=== PATIENT | male | born 1940 | race Caucasian/White ===

== ENCOUNTER → 2018-07-14 14:55 | Outpatient (CLI) | payer OTHER, MEDICARE, SELFPAY ==
--- NOTE | 2018-07-14 14:58 | MR_ITS ---
MR lumbar spine wo con, MR 3-d myelogram/MRCP HISTORY: PT states low back pain, RT buttock and leg pain, numbness and tingling X2 months. ITS.REASON: LOW BACK PAIN ORDERING PHYSICIAN: Marisela Daniel PATIENT AGE: 78 years Comparison: CT lumbar 05/30/18 TECHNIQUE: Standard multiplanar multiecho sequences are performed without contrast. 3-D MIP and myelographic images are also rendered and reviewed FINDINGS: There is normal alignment. The spinal cord ends at the L1-L2 level. L1-L2: Mild degenerative disc disease with mild facet and ligamentum flavum hypertrophy with mild bilateral foraminal narrowing. L2-L3: Mild concentric bulging disc along with facet and ligamentum flavum hypertrophy with mild bilateral lateral recess and foraminal narrowing. L3-L4: Mild concentric bulging disc along with moderate facet and ligamentum flavum hypertrophic change. There is moderate bilateral foraminal narrowing as well as moderate bilateral lateral recess narrowing. There is mild narrowing of the canal due to the ligamentum hypertrophic changes L4-5: There is a mild concentric bulging disc along with a moderate-sized right paracentral disc herniation with superior extrusion which results in impingement upon the exiting right L4 nerve root and the descending right L5 nerve root. There is severe right-sided foraminal narrowing. The herniated disc also appears to involve the foraminal aspect of the disc with severe compression of the right L4 nerve root. Facet and ligamentum flavum hypertrophy is also present at this level with bilateral lateral recess and foraminal narrowing left. L5-S1: Again there is degenerative disc disease with bulging disc and type II endplate changes anteriorly. Facet and ligamentum flavum hypertrophy is present with moderate right and moderate to severe left foraminal narrowing. IMPRESSION: 1. Concentric bulging disc at L4-L5 along with a moderate-sized right paracentral and foraminal disc herniation. There is superior extrusion of the right paracentral aspect of the disc herniation. There is impingement upon the exiting right L4 nerve root and the descending right L5 nerve root. There is severe right-sided foraminal narrowing. The herniated disc also appears to involve the foraminal aspect of the disc with severe compression of the right L4 nerve root. 2. Multilevel lumbar spondylosis with bulging disc, degenerative disc disease and facet and ligamentum hypertrophy with foraminal and lateral recess narrowing. Please see above for detailed description at each level
== END ==
PROVIDERS: PCP Nurse Practitioner Family; Visit Provider Nurse Practitioner Family
DX: M51.36 Other intervertebral disc degeneration, lumbar region (principal)
CPT/HCPCS: 72148; 76376

== ENCOUNTER 2018-12-11 08:57 | Observation (INO) ==
[2018-12-11 09:22] LABS: Basophils # 0.1 K/mm3 (0-0.2); Basophils % 0.7 % (0.1-2.0); Eosinophils # 0.4 K/mm3 (0.0-0.4); Eosinophils % 2.7 % (0.1-12.0); Hematocrit 44.8 % (42.0-52.0); Hemoglobin 15.9 g/dL (14.1-18.0); Lymphocytes # 7.4 K/mm3 (0.7-4.5); Lymphocytes % 52.4 % (10-50); Mean Corpuscular HGB Conc 35.4 g/dL (31.8-35.4); Mean Corpuscular Hemoglobin 29.4 pg (27.0-31.2); Mean Corpuscular Volume 82.9 fl (80-94); Mean Platelet Volume 7.2 fl (7.4-10.4); Monocytes # 0.8 K/mm3 (0.1-1.0); Monocytes % 5.4 % (1.7-9.3); Neutrophils # 5.5 K/mm3 (1.8-7.8); Neutrophils % 38.8 % (37.0-80.0); Platelet Count 314 K/mm3 (142-424); Red Blood Count 5.41 M/mm3 (4.60-6.20); Red Cell Distribution Width 13.1 % (11.5-17.5); White Blood Count 14.1 K/mm3 (4.8-10.8)
[2018-12-11 09:32] LABS: Blood Urea Nitrogen 9 mg/dL (7-18); Calcium 9.2 mg/dL (8.5-10.1); Carbon Dioxide 24 mmol/L (21.0-32.0); Chloride 103 mmol/L (98-107); Sodium 139 mmol/L (136-145)
[2018-12-11 09:41] LABS: Glucose 114 mg/dL (74-106)
--- NOTE | 2018-12-11 10:13 | Consult Report ---
<TaiwoDarwin - Last Filed: 12/11/18 10:55> [facility] History I have reviewed the patient's past medical history: Yes Meds Home Medications Medication Instructions Recorded Confirmed Type Loratadine [Claritin] 10 mg PO DAILY 05/30/18 05/30/18 History Allergies Allergy/AdvReac Type Severity Reaction Status Date / Time codeine Allergy Verified 05/30/18 10:59 Exam Vital signs and Labs for Last 24 Hours: Temp Pulse Resp BP Pulse Ox 96.9 F L 58 L 15 136/65 97 12/11/18 08:57 12/11/18 10:27 12/11/18 09:52 12/11/18 10:27 12/11/18 10:27 Laboratory Results - last 24 hr 12/11/18 09:05: WBC 14.1 H, RBC 5.41, Hgb 15.9, Hct 44.8, MCV 82.9, MCH 29.4, MCHC 35.4, RDW 13.1, Plt Count 314, MPV 7.2 L, Neut % (Auto) 38.8, Lymph % (Auto) 52.4 H, Hubbard % (Auto) 5.4, Eos % (Auto) 2.7, Baso % (Auto) 0.7, Neut # (Auto) 5.5, Lymph # (Auto) 7.4 H, Hubbard # (Auto) 0.8, Eos # (Auto) 0.4, Baso # (Auto) 0.1, Total Counted 100, Neutrophils % (Manual) 36 L, Band Neutrophils % 1.0, Lymphocytes % (Manual) 54 H, Monocytes % (Manual) 8, Eosinophils % (Manual) 1, Platelet Estimate Normal, RBC Morphology Normal 12/11/18 09:05: Sodium 139, Potassium 4.0, Chloride 103, Carbon Dioxide 24, Anion Gap 16.0 H, BUN 9, Creatinine 1.11, Estimated Creat Clear 64, Estimated GFR 64, Est GFR ( Amer) 77, Glucose 114 H, Calcium 9.2, Troponin I < 0.02 I & O for Last 24 hours: Intake & Output 12/08/18 12/09/18 12/10/18 12/11/18 11:59 11:59 11:59 11:59 Weight 184 lb Assessment and Plan (1) Near syncope Current visit: Yes Status: Acute Category: Medical Code(s): R55 - Syncope and collapse (2) Sick sinus syndrome Current visit: Yes Status: Acute Category: Medical Code(s): I49.5 - Sick sinus syndrome (3) Junctional escape rhythm Current visit: Yes Status: Acute Category: Medical Code(s): I49.49 - Other premature depolarization <Neeraj Mclain - Last Filed: 12/11/18 11:06> History of Present Illness Consult date: 12/11/18 Requesting physician: Darwin Maravilla Chief complaint: Near syncope Additional Medical History:: 1. History of myocardial infarction approximately 1999 with reported damage to "the lower half of the heart" but no available records at this time 2. 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 History of present illness: 78-year-old white male was in the emergency department with his , who is being seen, when he developed sudden lightheadedness, nausea, diaphoresis and dizziness with near syncope type symptoms. Patient's reports a similar episode 1 to 2 weeks ago without passing out. Patient was placed in a ER bay with an EKG obtained showing what appears to be sick sinus syndrome with sinus arrest and junctional escape beat. After IV fluids started patient's heart rate did improve into the 60s and 70s to a sinus rhythm. Patient still feels tired but denies any dizziness, chest pain, pressure or tightness. He denies tobacco use or history of diabetes. He denies hypertension or history of hyperlipidemia. No significant family history of coronary disease but there is a family history for pacemaker placement. Initial troponin is normal and cardiology consulted for evaluation and recommendations. No old EKG available for comparison. [facility] History Medical History: Denies:: Diabetes Mellitus Type 1, Diabetes Mellitus Type 2 - *Social History Alcohol Intake: never Family Hx:: Non-contributory Review of Systems - *Cardiovascular Denies chest pain, Denies shortness of breath - *Respiratory Denies cough, Denies shortness of breath - *Gastrointestinal Denies abdominal pain, Denies heartburn, Denies incontinent of stools, Denies nausea - *Genitourinary Denies painful urination, Denies blood in urine - *Musculoskeletal Reports joint pain, Reports back pain - *Neurologic Reports dizziness, Reports weakness Exam Vital signs and Labs for Last 24 Hours: Temp Pulse Resp BP Pulse Ox 96.9 F L 55 L 15 146/81 H 98 12/11/18 08:57 12/11/18 09:52 12/11/18 09:52 12/11/18 09:52 12/11/18 09:52 Laboratory Results - last 24 hr 12/11/18 09:05: WBC 14.1 H, RBC 5.41, Hgb 15.9, Hct 44.8, MCV 82.9, MCH 29.4, MCHC 35.4, RDW 13.1, Plt Count 314, MPV 7.2 L, Neut % (Auto) 38.8, Lymph % (Auto) 52.4 H, [place] % (Auto) 5.4, Eos % (Auto) 2.7, Baso % (Auto) 0.7, Neut # (Auto) 5.5, Lymph # (Auto) 7.4 H, Hubbard # (Auto) 0.8, Eos # (Auto) 0.4, Baso # (Auto) 0.1 12/11/18 09:05: Sodium 139, Potassium 4.0, Chloride 103, Carbon Dioxide 24, Anion Gap 16.0 H, BUN 9, Creatinine 1.11, Estimated Creat Clear 64, Estimated GFR 64, Est GFR ( Amer) 77, Glucose 114 H, Calcium 9.2, Troponin I < 0.02 I & O for Last 24 hours: Intake & Output 12/08/18 12/09/18 12/10/18 12/11/18 11:59 11:59 11:59 11:59 Weight 184 lb - *Routine HEENT Exam Head: Present: normocephalic Eye: Present: EOMI, PERRL ENT: Present: mucous membranes moist - *Routine Neck Exam Present: supple. Absent: JVD, carotid bruit - *Routine Respiratory Exam Present: CTA bilaterally. Absent: accessory muscle use, rales, rhonchi, wheezes - *Routine Cardiovascular Exam Present: RRR. Absent: murmur, gallop, rubs - *Routine Abdominal Exam Present: soft. Absent: tenderness, distended, guarding - *Routine Extremities Exam Absent: edema, calf tenderness - *Routine Neurological Exam Present: alert, oriented X3, moving all extremities Assessment and Plan (1) Near syncope Current visit: Yes Status: Acute Category: Medical Code(s): R55 - Syncope and collapse (2) Sick sinus syndrome Current visit: Yes Status: Acute Category: Medical Code(s): I49.5 - Sick sinus syndrome (3) Junctional escape rhythm Current visit: Yes Status: Acute Category: Medical Code(s): I49.49 - Other premature depolarization - Assessment and plan all Dx Assessment and Plan for all problems:: 1. Preliminary echo shows EF about 50%. 2. Plan for dual chamber pacemaker placement today. 3. Will need ischemic workup as outpatient due to history of KS. 4. Recommend starting statin (lipitor 40 mg daily) and ASA 81 mg daily after pacer implant.
[2018-12-11 10:18] LABS: Eosinophils % 1 % (0-3); Lymphocytes % 54 % (10-50); Monocytes % 8 % (2-9); Neutrophils % 36 % (42-76); RBC Morphology Normal; Total Cells Counted 100
--- NOTE | 2018-12-11 11:03 | Emergency Department Note ---
ED Disposition Clinical Impression: Cardiac arrhythmia Qualifiers: Arrhythmia type: sick sinus syndrome Qualified Code(s): I49.5 - Sick sinus syndrome Disposition: Admitted As Inpatient Condition on Discharge: Serious Referrals: Darwin Maravilla MD [Primary Care Provider] - - Critical Care Critical Care Time: No Attestation: On 12/11/18, the high probability of a clinically significant, sudden or life threatening deterioration of the following system(s) required my full and direct attention, intervention and personal management. The time I documented below is in addition to time spent performing reported procedures but includes the following listed in this critical care notation. Medical Decision Making - Medical Records Medical records reviewed: Yes: I reviewed the patient's medical records. - Ned Inquiry Pt receiving controlled substance: No Vital Signs: 12/11/18 08:57 12/11/18 09:00 12/11/18 09:06 Temperature 96.9 F L Temperature Source Temporal Artery Scan Pulse Rate [Apical] 41 L 56 L 58 L Respiratory Rate 12 18 Blood Pressure [Right Arm] 108/73 L 132/72 132/72 Blood Pressure Mean [Right Arm] 84 92 92 Blood Pressure Source [Right Arm] Automatic Cuff Automatic Cuff Blood Pressure Position [Right Arm] Sitting Sitting 02 Sat by Pulse Oximetry 98 98 98 Oxygen Delivery Method Room Air Room Air Room Air Oxygen Flow Rate (LPM) 12/11/18 09:09 12/11/18 09:10 12/11/18 09:33 Temperature Temperature Source Pulse Rate [Apical] 58 L 58 L Respiratory Rate 16 Blood Pressure [Right Arm] 132/75 132/74 Blood Pressure Mean [Right Arm] 94 93 Blood Pressure Source [Right Arm] Automatic Cuff Automatic Cuff Blood Pressure Position [Right Arm] Sitting Supine 02 Sat by Pulse Oximetry 98 97 98 Oxygen Delivery Method Room Air Nasal Cannula Nasal Cannula Oxygen Flow Rate (LPM) 2 2 12/11/18 09:52 12/11/18 10:17 12/11/18 10:27 Temperature Temperature Source Pulse Rate [Apical] 55 L 56 L 58 L Respiratory Rate 15 Blood Pressure [Right Arm] 146/81 H 139/75 136/65 Blood Pressure Mean [Right Arm] 102 96 88 Blood Pressure Source [Right Arm] Automatic Cuff Automatic Cuff Automatic Cuff Blood Pressure Position [Right Arm] Supine Supine 02 Sat by Pulse Oximetry 98 98 97 Oxygen Delivery Method Nasal Cannula Nasal Cannula Nasal Cannula Oxygen Flow Rate (LPM) 2 2 2 12/11/18 10:54 Temperature Temperature Source Pulse Rate [Apical] 60 Respiratory Rate 18 Blood Pressure [Right Arm] 133/75 Blood Pressure Mean [Right Arm] 94 Blood Pressure Source [Right Arm] Automatic Cuff Blood Pressure Position [Right Arm] Supine 02 Sat by Pulse Oximetry 97 Oxygen Delivery Method Oxygen Flow Rate (LPM) - Lab Data Lab results reviewed: Yes: I reviewed the patient's lab results. Lab Results 12/11/18 09:05: WBC 14.1 H, RBC 5.41, Hgb 15.9, Hct 44.8, MCV 82.9, MCH 29.4, MCHC 35.4, RDW 13.1, Plt Count 314, MPV 7.2 L, Neut % (Auto) 38.8, Lymph % (Auto) 52.4 H, [place] % (Auto) 5.4, Eos % (Auto) 2.7, Baso % (Auto) 0.7, Neut # (Auto) 5.5, Lymph # (Auto) 7.4 H, [place] # (Auto) 0.8, Eos # (Auto) 0.4, Baso # (Auto) 0.1, Total Counted 100, Neutrophils % (Manual) 36 L, Band Neutrophils % 1.0, Lymphocytes % (Manual) 54 H, Monocytes % (Manual) 8, Eosinophils % (Manual) 1, Platelet Estimate Normal, RBC Morphology Normal 12/11/18 09:05: Sodium 139, Potassium 4.0, Chloride 103, Carbon Dioxide 24, Anion Gap 16.0 H, BUN 9, Creatinine 1.11, Estimated Creat Clear 64, Estimated GFR 64, Est GFR ( Amer) 77, Glucose 114 H, Calcium 9.2, Troponin I < 0.02 Result diagrams: 12/11/18 09:05 12/11/18 09:05 Orders (Tests/Meds): ED MEDICATIONS Discontinued Medications Generic Name Dose Route Start Last Admin Trade Name Freq PRN Reason Stop Dose Admin Sodium Chloride 1,000 mls @ 999 mls/hr 12/11/18 09:15 12/11/18 09:11 Sod Chlor 0.9% 1000ml Bag IV 12/11/18 10:15 999 mls/hr .[id number] KATHY Administration - Radiology Data #1 Image(s): Chest Image Reviewed: Yes I reviewed the patient's radiology image Preliminary Findings: Normal/NAD - ECG Data Tracing #1 Conduction abnormalities present: 3rd degree AV block Tracing #2 Arrhythmias present: sinus tory Ischemic changes: non-specific ST-T wave changes - Physician Consults Physician Consulted: [email or web address] Reason -: Pt condition Arrhythmia/Palpitations HPI - General Chief Complaint: Dizziness Stated Complaint: dizziness, clammy Time Seen by Provider: 12/11/18 09:00 Mode of Arrival: Carried Source of Information: Patient, Spouse, Medical Record Limitations: No Limitations - History of Present Illness HPI narrative: pt sitting with and had staring episode and did not feel well with nausea and calmmy - pt was noted to have slow hr and found to be in possible 3rd degree hreat block - Onset (ago): minute(s) Severity: severe Context: occurred during rest Associated symptoms: nausea, diaphoresis - Related Data Home Medications Medication Instructions Recorded Confirmed Loratadine [Claritin] 10 mg PO DAILY 05/30/18 05/30/18 Allergies Allergy/AdvReac Type Severity Reaction Status Date / Time codeine Allergy Verified 05/30/18 10:59 [facility] History - Hepatitis A Screen Drug use history?: No High risk sexual behaviors?: No History of sexually transmitted infection?: No Currently employed?: No Childcare worker?: No Do you have indoor plumbing?: Yes Do you have electricity?: Yes Attestation statement:: This patient has been screened for Hepatitis A risk factors. I have reviewed the patient's past medical history: Yes Medical History: Denies:: Diabetes Mellitus Type 1, Diabetes Mellitus Type 2 - Social History Alcohol Intake: never Occupational Status: other - Psychiatric History Expresses thoughts of harming self/others: None Suicide Plan Description: No Plan ROS Obtained: Yes All systems reviewed & no additional complaints - Constitutional Constitutional: Denies fever(s) - Eyes Eyes: Denies change in vision - ENT Ears, Nose, Mouth, and Throat: Denies neck pain - Cardiovascular Cardiovascular: Denies chest pain, Reports lightheadedness, Reports slow heart rate - Respiratory Respiratory: No cough - Gastrointestinal Gastrointestingal: Denies: abdominal pain - Genitourinary Male Genitourinary: Denies hematuria - Musculoskeletal Musculoskeletal: Denies joint pain - Integumentary/Breasts Skin/Breast: Denies rash - Neurologic Neurologic: Denies seizure-like activity Physical Exam - General General appearance: alert - Head Head exam: normocephalic - Eye Eye exam: Present: PERRL, EOMI. Absent: scleral icterus - ENT ENT exam: Present: mucous membranes dry - Neck Neck exam: Present: trachea midline - Respiratory Respiratory exam: Present: normal lung sounds bilaterally. Absent: respiratory distress - Cardiovascular Cardiovascular exam: Present: bradycardia, systolic murmur - Abdominal Exam Abdominal exam: Present: soft - Extremities Exam Extremities exam: Absent: calf tenderness - Neurological Exam Neurological exam: Present: alert, CN II-XII intact - Psychiatric Psychiatric exam: Present: normal affect - Skin Skin exam: Absent: rash
--- NOTE | 2018-12-11 11:06 | Cardiology Report ---
PROCEDURE: 2-D M-mode and color Doppler study INDICATIONS FOR THE TEST: Chest pain COPD Heart Murmur Tobacco Smoking Palpitations Fatigue Syncope+ Edema Hypertension Diabetes Mellitus Rheumatic Fever SOB HURST Obesity Hyperlipidemia Family History HD Additional History bradycardia, sick sinus syndrome TDS-OVERLAYING LUNG,OFF-AXIS PATIENT INFORMATION HEIGHT: 70 WEIGHT:184 GENDER: Male B/P:145/81 2-D/M-MODE INTERPRETATION: 2-D MEASUREMENTS OBSERVED VALUES IN CMS Right Ventricular Dimension (RVDd) 2.3 Interventricular Septum (Thickness)(IVsd) 0.9 Left Ventricular Internal Dimensions(LVIDd) 4.1 Left Ventricular Posterior Wall (Thickness)(LVPWd) 1.1 Aortic Root 2.6 Aortic Cusp Separation 1.8 Left Atrial Dimensions (LAD) 2.9 2D 1. Left atrium is normal size, left ventricle is normal size, visually estimated ejection fraction 55% with no regional wall motion abnormality. 2. The right atrium and right ventricle are normal size and contractility. 3. The aortic valve is minimally thickened and fibrosed. 4. The mitral and tricuspid valve are grossly normal. 5. The pulmonic valve is poorly visualized. 6. No significant pericardial effusion noted. DOPPLER INTERROGATION: Doppler interrogation of the aortic, mitral and tricuspid valvular presence of mild mitral and tricuspid regurgitation, tricuspid regurgitation jet velocity is inadequate for calculation of the right ventricular systolic pressure, diastolic parameters are inconclusive, inferior vena cava is normal size with normal inspiratory collapse. CONCLUSION: 1. Normal left ventricular size, visually estimated ejection fraction 55% with no regional wall motion abnormality, diastolic parameters are inconclusive. 2. Mild mitral and tricuspid regurgitation, tricuspid regurgitant jet velocity is inadequate for calculation of the right ventricular systolic pressure, inferior vena cava is normal size with normal inspiratory collapse.
--- NOTE | 2018-12-11 14:23 | Progress Note ---
[facility] Anesthesia Checklist - Patient Identification Patient Identification: Arm Band, Verbal (Name & ) - Structural Data Admitted From: Home Planned Operative Procedure/s: pacemaker Consent for Planned Operative Procedure(s) Verified: Yes Verified Documents: History and Physical - NPO Status Verified Time NPO: 00:00 - Additional verifications Patient : No Anesthesia Reactions: No Hx Blood Transfusions: No Blood Transfusion Reaction: No Cephalosporin Allergy: No Previous Colonoscopy: No - Cardiovascular Assessment Heart Sounds: S1 & S2 Pulse Strength: Baseline Pulse Rhythm: Regular Peripheral Edema: No - Airway Assessment C-Spine Mobility Assessed: Yes TMJ Mobility Assessed: Yes Dentition: Good Dentition - Neurological Assessment Level of Consciousness: Awake, Alert, Appropriate Hx Seizures: No Numbness or tingling in extremities: No - Anesthesia Plan Anesthesia Risk discussed: Yes Anesthesia Plan: Verified ASA Class: III Anesthesia Type: [facility] History I have reviewed the patient's past medical history: Yes Medical History: Denies:: Diabetes Mellitus Type 1, Diabetes Mellitus Type 2, Seizures Other Medical History: Denies: Blood Transfusion Reaction - *Social History Alcohol Intake: never *Occupational Status:: other *Travel in the last 8 weeks: None - Psychiatric History Expresses thoughts of harming self/others: None Suicide Plan Description: No Plan Family Hx:: Non-contributory
--- NOTE | 2018-12-11 15:08 | Pharmacy Consult Notes ---
[facility] Pharmacy VTE Monitoring - Patient Demographics Admission date: 12/11/18 Report Date: 12/11/18 Time: 15:08 Allergies/Adverse Reactions: Patient Allergies codeine Allergy (Verified 05/30/18 10:59) Height: 1.78 m Weight: 83.461 kg Patient Problems: Current Active Problems (Updated 12/11/18 @ 11:06 by Darwin Maravilla MD) Near syncope (Acute) Sick sinus syndrome (Acute) Junctional escape rhythm (Acute) Cardiac arrhythmia (Acute) - VTE Risk Labs: VTE Related Lab Results Hgb 15.9 g/dL (14.1-18.0) 12/11/18 09:05 Hct 44.8 % (42.0-52.0) 12/11/18 09:05 Plt Count 314 K/mm3 (142-424) 12/11/18 09:05 BUN 9 mg/dL (7-18) 12/11/18 09:05 Creatinine 1.11 mg/dL (0.70-1.30) 12/11/18 09:05 Estimated Creat Clear 64 mL/min (50-200) 12/11/18 09:05 - Prophylaxis VTE Prophylaxis Ordered?: Yes Types of VTE Prophylaxis: TEDS Knee High Location of Applied Device: Bilateral Lower Extremeties - VTE Diagnosis Confirmed Treatment or plan recommended: Continue Current Treatment
--- NOTE | 2018-12-11 16:33 | Progress Note ---
[facility] Anesthesia Record Part I Intake, IV Amount: 800 Estimated blood loss (mL): 20 Urine output (mL): 0 (NM) Blood Products used (#): none Blood Pressure: 137/72 SaO2: 96 Pulse Rate: 65 Respiratory Rate: 16 Temperature: 97.1 F Patient is:: Awake, Drowsy, Stable Stable to PACU at:: 16:30
--- NOTE | 2018-12-11 16:33 | Progress Note ---
[facility] Anesthesia Record Part II Discharge Time: 17:00 Destination: Medical Surgical Department PACU nurse assessment reviewed?: Yes Patient Condition:: Good Anesthesia Complications:: None Swallowing reflex intact?: Yes Cyanosis?: No
[2018-12-12 07:25] LABS: Basophils # 0.1 K/mm3 (0-0.2); Basophils % 0.5 % (0.1-2.0); Eosinophils # 0.2 K/mm3 (0.0-0.4); Eosinophils % 1.9 % (0.1-12.0); Hematocrit 42.1 % (42.0-52.0); Hemoglobin 14.4 g/dL (14.1-18.0); Lymphocytes # 4.3 K/mm3 (0.7-4.5); Lymphocytes % 39.5 % (10-50); Mean Corpuscular HGB Conc 34.1 g/dL (31.8-35.4); Mean Corpuscular Hemoglobin 28.6 pg (27.0-31.2); Mean Corpuscular Volume 83.6 fl (80-94); Mean Platelet Volume 7.1 fl (7.4-10.4); Monocytes # 0.7 K/mm3 (0.1-1.0); Monocytes % 6.4 % (1.7-9.3); Neutrophils # 5.6 K/mm3 (1.8-7.8); Neutrophils % 51.8 % (37.0-80.0); Platelet Count 229 K/mm3 (142-424); Red Blood Count 5.03 M/mm3 (4.60-6.20); Red Cell Distribution Width 13.2 % (11.5-17.5); White Blood Count 10.8 K/mm3 (4.8-10.8)
[2018-12-12 07:36] LABS: Anion Gap 13.7 mEq/L (5-15); Calcium 8.7 mg/dL (8.5-10.1); Potassium 3.7 mmoL/L (3.5-5.1)
--- NOTE | 2018-12-12 10:13 | H&P/Discharge Summary ---
General - General Admission date:: 12/11/18 Discharge date: 12/12/18 *Admission Date: 12/11/18 *Chief complaint: syncope *History of present illness: 78-year-old white male was in the emergency department with his , who is being seen, when he developed sudden lightheadedness, nausea, diaphoresis and dizziness with near syncope type symptoms. Patient's reports a similar episode 1 to 2 weeks ago without passing out. Patient was placed in a ER bay with an EKG obtained showing what appears to be sick sinus syndrome with sinus arrest and junctional escape beat. After IV fluids started patient's heart rate did improve into the 60s and 70s to a sinus rhythm. Patient still feels tired but denies any dizziness, chest pain, pressure or tightness. He denies tobacco use or history of diabetes. He denies hypertension or history of hyperlipidemia. No significant family history of coronary disease but there is a family history for pacemaker placement. Initial troponin is normal and cardiology consulted for evaluation and recommendations. No old EKG available for comparison.-per elisabeth dyson [facility] History I have reviewed the patient's past medical history: Yes Medical History: Reports:: Myocardial Infarction Denies:: Diabetes Mellitus Type 1, Diabetes Mellitus Type 2, Seizures *Have you ever received a pneumonia vaccine?: No *Have you received a flu vaccine this season?: No Other Medical History: Denies: Blood Transfusion Reaction Other Surgeries: Yes: Cholecystectomy, Hernia Repair, Other - *Social History Alcohol Intake: never *Occupational Status:: other *Travel in the last 8 weeks: None - Psychiatric History Expresses thoughts of harming self/others: None Suicide Plan Description: No Plan Family Hx:: Non-contributory Review of Systems - Review of Systems Review of systems:: pertinent systems reviewed and negative unless documented below - Constitutional Denies fever(s) - Eyes Denies change in vision - ENT Denies change in voice - *Cardiovascular Reports slow heart rate, Reports other, Denies chest pain with activity - *Respiratory Denies chest congestion - *Gastrointestinal Denies bloating, Denies vomiting - *Genitourinary Denies urinary frequency - *Musculoskeletal Denies back pain - Integumentary/Breasts Denies rash - *Neurologic Reports dizziness, Reports weakness, Denies seizure-like activity - Psychiatric Denies anxiety - Endocrine Denies flushing - Hematologic/Lymphatic Denies enlarged lymph nodes - Allergic/Immunologic Denies itchy eyes Exam Vital signs and Labs for Last 24 Hours: Temp Pulse Resp BP Pulse Ox 98.8 F 60 16 129/67 96 12/12/18 08:00 12/12/18 09:59 12/12/18 09:59 12/12/18 09:59 12/12/18 09:59 Laboratory Results - last 24 hr 12/11/18 09:05: Total Counted 100, Neutrophils % (Manual) 36 L, Band Neutrophils % 1.0, Lymphocytes % (Manual) 54 H, Monocytes % (Manual) 8, Eosinophils % (Manual) 1, Platelet Estimate Normal, RBC Morphology Normal 12/11/18 17:00: Troponin I 0.08 H 12/11/18 19:56: Troponin I 0.20 H 12/12/18 06:45: WBC 10.8, RBC 5.03, Hgb 14.4, Hct 42.1, MCV 83.6, MCH 28.6, MCHC 34.1, RDW 13.2, Plt Count 229 D, MPV 7.1 L, Neut % (Auto) 51.8, Lymph % (Auto) 39.5, [place] % (Auto) 6.4, Eos % (Auto) 1.9, Baso % (Auto) 0.5, Neut # (Auto) 5.6, Lymph # (Auto) 4.3, [place] # (Auto) 0.7, Eos # (Auto) 0.2, Baso # (Auto) 0.1 12/12/18 06:45: Sodium 139, Potassium 3.7, Chloride 105, Carbon Dioxide 24, Anion Gap 13.7, BUN 7, Creatinine 0.91, Estimated Creat Clear 78, Estimated GFR 80, Est GFR ( Amer) 97 D, Glucose 112 H, Calcium 8.7, Magnesium 1.8 I & O for Last 24 hours: Intake & Output 12/09/18 12/10/18 12/11/18 12/12/18 11:59 11:59 11:59 11:59 Intake Total 3055 / 3055 Output Total 925 / 925 Balance 2130 / 2130 Weight 184 lb 202 lb 6 oz - Constitutional no acute distress - *Routine HEENT Exam Head: Present: normocephalic Eye: Present: EOMI, PERRL ENT: Present: mucous membranes moist - *Routine Neck Exam Present: supple. Absent: lymphadenopathy - *Routine Respiratory Exam Present: CTA bilaterally - *Routine Cardiovascular Exam Present: RRR Comments: pacemaker - *Routine Abdominal Exam Present: soft, normoactive bowel sounds. Absent: tenderness - *Routine Extremities Exam Absent: cyanosis, clubbing, edema - *Routine Skin Exam Present: warm. Absent: rash Comments: dressing to left upper chest c/d/i - *Routine Neurological Exam Present: alert, oriented X3 - Routine Psychiatric Exam Present: normal affect Hospital Course Hospital Course: echo:CONCLUSION: 1. Normal left ventricular size, visually estimated ejection fraction 55% with no regional wall motion abnormality, diastolic parameters are inconclusive. 2. Mild mitral and tricuspid regurgitation, tricuspid regurgitant jet velocity is inadequate for calculation of the right ventricular systolic pressure, inferior vena cava is normal size with normal inspiratory collapse chest x ray: FINDINGS: Bipolar pacemaker has been inserted by left subclavian approach. Leads are present with tips in region of right atrium and right ventricle. No evidence of pneumothorax. Lungs are clear bilaterally. IMPRESSION: Interval pacemaker insertion with good lead position and no acute finding as described above dc home follow up with zohaib next week call friday for appointment Results Labs on day of discharge: Labs from last 24 hours 12/12/18 12/12/18 12/11/18 06:45 06:45 19:56 WBC 10.8 RBC 5.03 Hgb 14.4 Hct 42.1 MCV 83.6 MCH 28.6 MCHC 34.1 RDW 13.2 Plt Count 229 D MPV 7.1 L Neut % (Auto) 51.8 Lymph % (Auto) 39.5 [place] % (Auto) 6.4 Eos % (Auto) 1.9 Baso % (Auto) 0.5 Neut # (Auto) 5.6 Lymph # (Auto) 4.3 [place] # (Auto) 0.7 Eos # (Auto) 0.2 Baso # (Auto) 0.1 Total Counted Neutrophils % (Manual) Band Neutrophils % Lymphocytes % (Manual) Monocytes % (Manual) Eosinophils % (Manual) Platelet Estimate RBC Morphology Sodium 139 Potassium 3.7 Chloride 105 Carbon Dioxide 24 Anion Gap 13.7 BUN 7 Creatinine 0.91 Estimated Creat Clear 78 Estimated GFR 80 Est GFR ( Amer) 97 D Glucose 112 H Calcium 8.7 Magnesium 1.8 Troponin I 0.20 H 12/11/18 12/11/18 17:00 09:05 WBC RBC Hgb Hct MCV MCH MCHC RDW Plt Count MPV Neut % (Auto) Lymph % (Auto) [place] % (Auto) Eos % (Auto) Baso % (Auto) Neut # (Auto) Lymph # (Auto) [place] # (Auto) Eos # (Auto) Baso # (Auto) Total Counted 100 Neutrophils % (Manual) 36 L Band Neutrophils % 1.0 Lymphocytes % (Manual) 54 H Monocytes % (Manual) 8 Eosinophils % (Manual) 1 Platelet Estimate Normal RBC Morphology Normal Sodium Potassium Chloride Carbon Dioxide Anion Gap BUN Creatinine Estimated Creat Clear Estimated GFR Est GFR ( Amer) Glucose Calcium Magnesium Troponin I 0.08 H - Additional Comments discussed with dr Kelli pandey to dc home on bisoprol 5 mg po daily,asa and liptor Discussed with andi luciano round later all orders per andi DS: Diagnosis - Discharge Diagnosis (1) Near syncope Status: Acute (2) Sick sinus syndrome Status: Acute (3) Junctional escape rhythm Status: Acute Discharge Medications - Medications for Discharge Home Medication List at Discharge: No Action Melatonin 1 mg PO HS Cetirizine HCl [Zyrtec] 10 mg PO DAILY Acetaminophen [Tylenol 325mg Tablet] 650 mg PO HS Disposition Disposition: Home, Self-Care
[2018-12-12 12:09] VITALS: BP 163/79
--- NOTE | 2018-12-17 08:44 | Procedure Note ---
[facility] Pacemaker - Pacemaker Placement Date of Procedure:: 12/11/18 Time of Procedure:: 16:00 Procedure Performed:: Pocket formation for permanent pacemaker placement Placement of atrial sensing pacing lead into the right atrial appendage Placement of ventricular sensing pacing lead into the right ventricular apex Permanent pacemaker placement Preoperative Diagnosis:: Symptomatic Bradycardia Complications:: None Estimated Blood Loss (ml):: 10 Technique:: 1% Lidocaine with epinephrine used to anesthetize the left anterior aspect of the chest.Scalpel was used to make the initial cutaneous incision while electrocautery was used to dissect down into the fascia. The fascia was lifted off the pectoralis muscle and digitally manipulated creating a pocket for the p acemaker. The patient was then placed in Trendelenburg position and the subclavian vein was accessed via the Selinger technique. A 7 Togolese sheath was placed under fluoroscopic guidance into the subclavian vein. Following this, an additional wire was placed into the sheath. Now, with two wires inside the 7 Togolese sheath, this sheath was removed, maintaining the two wires in the subclavian vein. The sheath and dilator was then placed over one of the wires while keeping the other wire in place within the subclavian vein. The dilator was removed from the sheath. Using fluoroscopic guidance, the ventricular lead was placed into the right ventricular apex, screwed and secured into place. Electronic interrogation proved acceptable thresholds and voltage within the lead. Using 3-0 silk, the ventricular lead was then secured into place. Lead was secured to the fascia using the 3-0 silk. Following this, the sheath was pealed away. An additional 7 Togolese fresh sheath and dilator was placed over the existing wire. Using fluoroscopic guidance, the atrial lead was then placed into the right atrial appendage and screwed and secured in place. Electrical interrogation demonstrated acceptable thresholds and voltage numbers. The atrial lead was then secured into place using 3-0 silk and then the lead was finally secured to the fascia. With both the atria and ventricular leads in pl juan [place]ose with acceptable thresholds and sensitivity, the atrial and ventricular leads were placed into the pacemaker generator. Pacemaker generator was then secured to the fascia using 3-0 silk. 1 gram of Ancef was used to flush the pocket. Following the pacemaker being secured to the fascia and in place, Monocryl was used to close the subcutaneous layers while miesha were used to close the cutaneous layer. A pressure dressing was placed and the patient was transferred to the postop holding area in stable condition for postoperative care. - Interrogation Narrative: Generator Model # L311 Serial # [id number] RA Model # 7741 Serial # [id number] P-wave 0.9 mV Impedance 600 Ohms Threshold AFIB RVA Model # 7742 Serial # [id number] R-wave 19.6 mV Impedance 900 Ohms Threshold .8V Pulse Width 0.5ms Pacing Parameters: Mode: DDDR Base/Max Track: 60/120 Impression:: Successful pocket formation for permanent pacemaker placement Successful placement of atrial and sensing pacing lead into the right atrial appendage Successful placement of ventricular sensing and pacing lead into the right ventricular apex Successful permanent pacemaker placement Plan: Postoperative wound care
== END 2018-12-12 12:55 | disposition home or self-care (01) ==
LOC: ER 08:57 → 2ND 08:57
PROVIDERS: ADMIT Emergency Medicine; ATTEND Emergency Medicine
CPT/HCPCS: 33208; 36415; 71010; 71045; 80048; 82962; 83735; 84484; 85007; 85025; 93005; 93306; 96365; 96374; 99285; C1785; C1898; G0378

== ENCOUNTER → 2018-12-28 06:34 | Outpatient (CLI) | payer MEDICARE, SELFPAY ==
--- NOTE | 2018-12-28 06:42 | NM_ITS ---
CARDIOLITE SPECT MYOCARDIAL PERFUSION LEXISCAN, REST AND STRESS: [facility] REVIEW QGS EF AND WALL MOTION EVALUATION: QPS - PERFUSION EVALUATION HISTORY: Abnormal EKG, Fatigue, Recent Pacemaker Placement DOSE: 10.86 mCi technetium 99m mibi intravenously at rest followed by 29.9 mCi technetium 99m mibi following the intravenous ministration of 0.4 mg of Lexiscan. Resting blood pressure is 178/98. Stress blood pressure 171/91. FINDINGS: Ejection fraction is calculated to be 64%. Stress stress images reveal decreased activity in the anterior wall accompanied by transient left ventricular dilatation. Rest images reveal diminished activity but improved from resting images. Gated images calculated ejection fraction of 64% with normal wall motion IMPRESSION: Transient left ventricular dilatation accompanied by anterior wall reversible ischemia. This is a high risk abnormal stress test
--- NOTE | 2018-12-28 07:05 | HMH.ITSHM ---
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 []ASA CETIRIZINE BISOPROLOL ATORVASTATIN MELATONIN
== END ==
PROVIDERS: Visit Provider Internal Medicine Cardiovascular Disease
DX: I25.2 Old myocardial infarction (principal); I49.5 Sick sinus syndrome; I49.9 Cardiac arrhythmia, unspecified; R94.31 Abnormal electrocardiogram [ECG] [EKG]
CPT/HCPCS: 78452; 93017; A9502; J2785

== ENCOUNTER 2019-01-14 07:46 | Day surgery (SDC) | payer MEDICARE, OTHER, SELFPAY ==
--- NOTE | 2019-01-14 | IR_ITS ---
CARDIAC CATHETERIZATION DATE OF CATHETERIZATION:01/14/2019 9:49 AM PROCEDURES: 1. Left heart catheterization 2. Left ventriculogram 3. Selective coronary angiogram INDICATION FOR TEST: 1. High risk abnormal Myoview with anterior ischemia 2. Angina pectoris 3. Coronary artery disease Informed consent was obtained prior to the procedure. COMPLICATIONS: None ESTIMATED BLOOD LOSS: Less than 10 ml. TECHNIQUE: One percent lidocaine used to anesthetize the right anterior aspect of the wrist. The right radial artery was accessed via the Seldinger technique. A 6 Hungarian sheath was placed in the right radial artery. 2.5 mg of verapamil, 800 mcg of nitroglycerin, 1mg Lidocaine and 5000 U Heparin were given through the arterial sheath. The trap catheter was also used to perform left heart catheterization, left ventriculogram and selective coronary angiogram. At the end of the diagnostic procedure 4000 units of heparin was administered intravenously producing an ACT of 375 seconds. An [employer] left guide catheter was used intubate the left main artery and a BMW wire was used to traverse the stenosis in the proximal LAD. A 3.5 x 26 mm resolute Hymera stent was deployed at 16 brunilda reducing the severe stenosis to 0%. GUSTAVO-3 flow was present before and after the procedure. At the end of the procedure the apparatus was removed the sheath was removed good hemostasis was achieved using TR banding patient was transferred to the postop holding area in stable condition ANGIOGRAPHIC RESULTS: 1. The left main artery normal 2. The left anterior descending artery has a proximal eccentric 50% stenosis followed by an additional 50-70% hazy stenosis. The remaining vessel is widely patent with an additional 40% mid vessel stenosis. 3. The circumflex artery is a large nondominant vessel with mild 10% luminal irregularities 4. The right coronary artery is a dominant vessel and normal 5. The JOSEPH ventriculogram reveals normal 65% 6. The left ventricular end-diastolic pressure 10 mmHg IMPRESSION: 1. Severe proximal LAD disease as described above with the stenosis perfectly correlating to the high risk abnormal Myoview producing anterior wall ischemia 2. Successful stenting the proximal LAD hemodynamically severe disease reduced to 0% with 1 drug-eluting stent 3. Normal ejection fraction 4. Normal left ventricular end-diastolic pressur PLAN: 1. Brilinta and aspirin 2. LDL less than 55 3. Cardiac rehabilitation 4. Avoidance of tobacco products
[2019-01-14 07:54] VITALS: BMI 27.5
[2019-01-14 08:40] VITALS: BP 172/102; PULSE 63; RESP 16; O2SAT 94
[2019-01-14 08:57] LABS: Basophils % 0.3 % (0.1-2.0); Eosinophils # 0.2 K/mm3 (0.0-0.4); Eosinophils % 2.2 % (0.1-12.0); Hematocrit 43.9 % (42.0-52.0); Hemoglobin 15.4 g/dL (14.1-18.0); Lymphocytes # 4.6 K/mm3 (0.7-4.5); Lymphocytes % 42.6 % (10-50); Mean Corpuscular HGB Conc 35.1 g/dL (31.8-35.4); Mean Corpuscular Hemoglobin 29.1 pg (27.0-31.2); Mean Corpuscular Volume 82.8 fl (80-94); Mean Platelet Volume 7.1 fl (7.4-10.4); Monocytes # 0.6 K/mm3 (0.1-1.0); Monocytes % 5.9 % (1.7-9.3); Neutrophils # 5.2 K/mm3 (1.8-7.8); Platelet Count 245 K/mm3 (142-424); Red Cell Distribution Width 13.5 % (11.5-17.5); White Blood Count 10.7 K/mm3 (4.8-10.8)
[2019-01-14 09:04] LABS: Blood Urea Nitrogen 11 mg/dL (7-18); Carbon Dioxide 26 mmol/L (21.0-32.0); Chloride 103 mmol/L (98-107); Creatinine Clearance Estimated 71 mL/min (50-200); Creatinine,Serum 1.04 mg/dL (0.70-1.30); Estimated Glomerular Filt Rate 69 ml/min (>60); GFR (African American) 83 ML/MIN (>60); Glucose 119 mg/dL (74-106); Sodium 139 mmol/L (136-145)
[2019-01-14 10:15] VITALS: BP 121/74; PULSE 61; RESP 18; O2SAT 92
[2019-01-14 10:17] VITALS: BP 134/71; PULSE 60; PULSE 62; RESP 18; O2SAT 92
[2019-01-14 10:24] VITALS: BP 134/71; PULSE 62; RESP 18; O2SAT 92
--- NOTE | 2019-01-14 13:07 | HMH.PHACLD ---
[place] has received discharge medication counseling on the following medications: NEW MEDICATION: BRILINTA CONTINUED MEDICATIONS: ASPIRIN, BISOPROLOL, ATORVASTATIN PATIENT IS NOT STARTING AN ARON/ARB AT THIS TIME PER MD. WILL LIKELY START IT DURING FIRST OFFICE VISIT PER RN. 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
[2019-01-14 16:18] LABS: CATHL Activated Clotting Time 375 SEC (74-125)
== END 2019-01-14 13:10 | disposition home or self-care (01) ==
PROVIDERS: PCP Nurse Practitioner Family; Visit Provider Internal Medicine
DX: I25.118 Atherosclerotic heart disease of native coronary artery with other forms of angina pectoris (principal); I10 Essential (primary) hypertension; Z95.0 Presence of cardiac pacemaker; I25.2 Old myocardial infarction; I49.5 Sick sinus syndrome; Z88.5 Allergy status to narcotic agent; Z79.899 Other long term (current) drug therapy
CPT/HCPCS: 80048; 85025; 85347; 92928; 93458; 99152; C1725; C1769; C1876; C1894; C9600; J1644; Q9967

== ENCOUNTER → 2019-03-08 11:48 | Outpatient (CLI) | payer MEDICARE, OTHER, SELFPAY ==
[2019-03-08 12:42] LABS: Alanine Aminotransferase 28 U/L (12-78); Albumin Level 3.8 gm/dL (3.4-5.0); Alkaline Phosphatase 60 U/L (46-116); Anion Gap 12.2 mEq/L (5-15); Aspartate Amino Transferase 13 U/L (15-37); Bilirubin,Direct 0.2 mg/dL (0.0-0.2); Bilirubin,Indirect 1.9 mg/dL (0.0-0.9); Bilirubin,Total 2.1 mg/dL (0.2-1.0); Blood Urea Nitrogen 17 mg/dL (7-18); Calcium 8.9 mg/dL (8.5-10.1); Carbon Dioxide 28 mmol/L (21.0-32.0); Chloride 104 mmol/L (98-107); Cholesterol 107 mg/dL (140-200); Creatinine,Serum 0.98 mg/dL (0.70-1.30); Estimated Glomerular Filt Rate 74 ml/min (>60); GFR (African American) 89 ML/MIN (>60); HDL Cholesterol 36 mg/dL (27-67); LDL Cholesterol 50 mg/dL (0-130); Potassium 4.2 mmoL/L (3.5-5.1); Sodium 140 mmol/L (136-145); Triglycerides 104 mg/dL (30-200); VLDL Cholesterol 21 mg/dL (0-40)
[2019-03-08 13:16] LABS: Glucose 107 mg/dL (74-106)
== END ==
PROVIDERS: Visit Provider Internal Medicine Cardiovascular Disease
DX: I25.10 Atherosclerotic heart disease of native coronary artery without angina pectoris (principal); E78.2 Mixed hyperlipidemia; I10 Essential (primary) hypertension; R06.09 Other forms of dyspnea; R94.31 Abnormal electrocardiogram [ECG] [EKG]; Z86.79 Personal history of other diseases of the circulatory system; Z95.0 Presence of cardiac pacemaker; I25.2 Old myocardial infarction
CPT/HCPCS: 36415; 80048; 80061; 80076

== ENCOUNTER 2020-10-10 10:46 | Emergency (ER) | payer OTHER, MEDICARE, SELFPAY ==
[2020-10-10 10:46] VITALS: BP 148/79; PULSE 71; RESP 16; TEMP 36.9; O2SAT 98; BMI 26.5
--- NOTE | 2020-10-10 10:54 | ECG_ITS ---
APPROVED REPORT Exam: Resting ECG HR:67 bpm ECG Measurements Heart Rate 67 AXES AK 194 P 4 QRSd 72 QRS 75 QT 384 T 3 QTc 405 Conclusion Normal sinus rhythm with sinus arrhythmia Septal infarct, age undetermined Abnormal ECG Electronically signed by : Conor Muñoz, 10/10/2020 21:19:51
--- NOTE | 2020-10-10 10:55 | HMH.EDGENADL ---
ED Disposition Clinical Impression: Near syncope, Resolved abdominal pain Disposition: Home, Self-Care Condition on Discharge: Good Instructions: DI for Syncope in Adults (Fainting), DI for Abdominal Pain-Adult Additional Instructions: Do not use coconut oil anymore. Return to the emergency room if any of your symptoms return. Referrals: Kassi Guthrie APRN [Primary Care Provider] - - Critical Care Critical Care Time: No Attestation: On , the high probability of a clinically significant, sudden or life threatening deterioration of the following system(s) required my full and direct attention, intervention and personal management. The time I documented below is in addition to time spent performing reported procedures but includes the following listed in this critical care notation. Medical Decision Making - Medical Records Medical records reviewed: Yes: I reviewed the patient's medical records. MR Comment: CT LS spine 2017 showed no aneurysmal dilitation of aorta. - Ned Inquiry Pt receiving controlled substance: No Vital Signs: 10/10/20 10:46 10/10/20 11:46 10/10/20 13:00 Temperature 98.5 F Temperature Source Oral Pulse Rate [Right] 71 72 64 Respiratory Rate 16 18 Blood Pressure [Right Arm] 148/79 H 136/76 126/71 Blood Pressure Mean [Right Arm] 102 96 89 Blood Pressure Source [Right Arm] Automatic Cuff Automatic Cuff Automatic Cuff Blood Pressure Position [Right Arm] Sitting Sitting Supine 02 Sat by Pulse Oximetry 98 96 97 Oxygen Delivery Method Room Air Room Air 10/10/20 13:36 Temperature Temperature Source Pulse Rate [Right] 71 Respiratory Rate 16 Blood Pressure [Right Arm] 134/70 Blood Pressure Mean [Right Arm] 91 Blood Pressure Source [Right Arm] Blood Pressure Position [Right Arm] 02 Sat by Pulse Oximetry 96 Oxygen Delivery Method Room Air - Lab Data Lab Results 10/10/20 10:45: WBC 14.2 H, RBC 5.19, Hgb 14.7, Hct 44.3, MCV 85.4, MCH 28.3, MCHC 33.1, RDW 14.0, Plt Count 287, MPV 7.8, Neut % (Auto) 46.7, Lymph % (Auto) 46.1, [place] % (Auto) 4.8, Eos % (Auto) 1.7, Baso % (Auto) 0.6, Neut # (Auto) 6.6, Lymph # (Auto) 6.6 H, [place] # (Auto) 0.7, Eos # (Auto) 0.3, Baso # (Auto) 0.1 10/10/20 10:45: Sodium 139, Potassium 3.9, Chloride 106, Carbon Dioxide 26, Anion Gap 10.9, BUN 13, Creatinine 1.20, Estimated Creat Clear 57, Estimated GFR 58 L, Est GFR ( Amer) 70, Glucose 166 H, Calcium 9.3, Troponin I < 0.01 10/10/20 10:45: Total Bilirubin 1.6 H, Direct Bilirubin 0.2, Conjugated Bilirubin 0.0, Indirect Bilirubin 1.4 H, Unconjugated Bilirubin 1.4 H, AST 32, ALT 20, Alkaline Phosphatase 45, Total Protein 7.8, Albumin 4.3 10/10/20 11:38: Urine Color Yellow, Urine Appearance Clear, Urine pH 6.0, Ur Specific [place] 1.025, Urine Protein 1+, Urine Glucose (UA) Negative, Urine Ketones Negative, Urine Blood Negative, Urine Nitrate Negative, Urine Bilirubin 1+ A, Urine Urobilinogen 0.2, Ur Leukocyte Esterase Negative, Urine WBC 3-5, Ur Squamous Epith Cells 3-5 Result diagrams: 10/10/20 10:45 10/10/20 10:45 Orders (Tests/Meds): ORDERS Category Date Time Status Troponin I Q3H Lab 10/10/20 14:00 Ordered Troponin I Q3H Lab 10/10/20 17:00 Ordered - Radiology Data #1 Image(s): Chest Image Reviewed: Yes I have reviewed radiologist's interpretation PROCEDURE: XR CHEST PORTABLE CLINICAL HISTORY: poss syncope Heart disease with pacemaker present COMPARISON: No exams were available for comparison FINDINGS: Normal heart size. Bipolar pacemaker is present from left subclavian approach. Probable granuloma left upper lobe at 5 mm. No lobar consolidation or collapse. No acute bony abnormalities. IMPRESSION: No acute findings. Dictated by: Carlos Terrell MD 10/10/2020 12:39 Carlos Terrell MD in [facility] 10/10/2020 12:39 - ECG Data Tracing #1 EKG interpreted by Steve Luz MD: Rhythm: sinus with interspersed atrial electronic pacemaker beats Rate:
[2020-10-10 11:06] LABS: Chloride 106 mmol/L (98-107)
[2020-10-10 11:07] LABS: Potassium 3.9 mmoL/L (3.5-5.1); Sodium 139 mmol/L (136-145)
[2020-10-10 11:10] LABS: Anion Gap 10.9 mEq/L (5-15); Basophils # 0.1 K/mm3 (0-0.2); Basophils % 0.6 % (0.1-2.0); Blood Urea Nitrogen 13 mg/dl (9-20); Calcium 9.3 mg/dl (8.4-10.2); Carbon Dioxide 26 mmol/L (22.0-30.0); Creatinine Clearance Estimated 57 mL/min (50-200); Eosinophils # 0.3 K/mm3 (0.0-0.4); Eosinophils % 1.7 % (0.1-12.0); Estimated Glomerular Filt Rate 58 ml/min (>60); GFR (African American) 70 ML/MIN (>60); Glucose 166 mg/dl (74-100); Hematocrit 44.3 % (42.0-52.0); Hemoglobin 14.7 g/dL (14.1-18.0); Lymphocytes # 6.6 K/mm3 (0.7-4.5); Lymphocytes % 46.1 % (10-50); Mean Corpuscular HGB Conc 33.1 g/dL (31.8-35.4); Mean Corpuscular Hemoglobin 28.3 pg (27.0-31.2); Mean Corpuscular Volume 85.4 fl (80-94); Mean Platelet Volume 7.8 fl (7.4-10.4); Monocytes # 0.7 K/mm3 (0.1-1.0); Monocytes % 4.8 % (1.7-9.3); Neutrophils # 6.6 K/mm3 (1.8-7.8); Neutrophils % 46.7 % (37.0-80.0); Platelet Count 287 K/mm3 (142-424); Red Blood Count 5.19 M/mm3 (4.60-6.20); White Blood Count 14.2 K/mm3 (4.8-10.8)
--- NOTE | 2020-10-10 11:31 | PC.NURSE ---
Pt up to restroom
[2020-10-10 11:41] LABS: Microscopic, Urine URINE MICROSCOPIC (MICROSCOPIC)
[2020-10-10 11:45] LABS: Appearance,Urine CLEAR (Clear); Blood, Urine Negative (Negative); Color,Urine YELLOW (Yellow); Glucose,Urine (UA) Negative (Negative); Ketones,Urine Negative (Negative); Leukocyte Esterase,Urine Negative (Negative); Nitrate,Urine Negative (Negative); Protein,Urine 1+ (Negative); Specific Gravity, Urine 1.025 (1.005-1.030); Urobilinogen,Urine 0.2 EU/dl (0.2)
[2020-10-10 11:46] VITALS: BP 136/76; PULSE 72; O2SAT 96
[2020-10-10 11:51] LABS: Bilirubin,Urine 1+ (Negative)
[2020-10-10 12:36] LABS: Troponin I < 0.01 ng/ml (0.00-0.034)
[2020-10-10 13:00] VITALS: BP 126/71; PULSE 64; RESP 18; O2SAT 97
[2020-10-10 13:36] VITALS: BP 134/70; PULSE 71; RESP 16; O2SAT 96
[2020-10-10 13:45] LABS: Alanine Aminotransferase 20 U/L (12-78); Albumin Level 4.3 g/dl (3.5-5.0); Alkaline Phosphatase 45 U/L (38-126); Aspartate Amino Transferase 32 U/L (17-59); Bilirubin,Direct 0.2 mg/dl (0.0-0.4); Bilirubin,Indirect 1.4 mg/dL (0.0-0.9); Bilirubin,Total 1.6 mg/dl (0.2-1.3); Bilirubin,Unconjugated 1.4 mg/dL (0.0-1.1); Total Protein,Serum 7.8 g/dl (6.3-8.2)
[2020-10-10 14:03] VITALS: BP 139/78; PULSE 73; RESP 16; TEMP 36.8; O2SAT 98
== END 2020-10-10 14:05 | disposition home or self-care (01) ==
PROVIDERS: Emergency Provider Emergency Medicine; PCP Nurse Practitioner
DX: R55 Syncope and collapse (principal); R10.30 Lower abdominal pain, unspecified; I25.2 Old myocardial infarction; Z95.0 Presence of cardiac pacemaker; Z79.899 Other long term (current) drug therapy
CPT/HCPCS: 71045; 80048; 80076; 81001; 84484; 85025; 93005; 99283

== ENCOUNTER 2020-10-25 12:04 | Emergency (ER) | payer OTHER, MEDICARE, SELFPAY ==
[2020-10-25 12:05] VITALS: BP 105/67; PULSE 94; RESP 18; TEMP 36.6; O2SAT 99; BMI 26.9
--- NOTE | 2020-10-25 12:36 | CT_ITS ---
PROCEDURE: CT SOFT TISSUE NECK W CON CLINICAL HISTORY: tender swelling left trapezius area COMPARISON: No exams were available for comparison TECHNIQUE: Oral Contrast: None IV Contrast: 100 mL Isovue 370 Axial images obtained with sagittal and coronal reformats. All CT scans at the facility use one or more dose reduction, viz: automated exposure control, ma/kV adjustment per patient size (including targeted exams where dose is matched to indication, i.e. head), or iterative reconstruction technique. FINDINGS: The nasopharynx has an unremarkable appearance. There is mild prominence of the palatine tonsils. No evidence peritonsillar abscess. The epiglottis and glottic region has an unremarkable appearance. There are numerous cervical lymph nodes. These are 1 cm or less in short axis. The nodes are present in the in the deep cervical chain on both sides and posterior to the sternocleidomastoid and supraclavicular region. The largest node is in the right jugular chain measuring 2 x 1 by 1.5 cm And no abnormal fluid collections are evident. There is an 8 mm subcutaneous nodule posterior to the medial aspect of the left trapezius muscle There are degenerative changes in the cervical spine. 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 Severe osteoarthritic change right TMJ Dictated by: Carlos Terrell MD 10/25/2020 15:07 Carlos Terrell MD in [facility] 10/25/2020 15:07
--- NOTE | 2020-10-25 12:36 | CT_ITS ---
PROCEDURE: CT CHEST W CON CLINCAL INDICATION: tender swelling left trapezius area COMPARISON: CT CT SOFT TISSUE NECK W CON from 10/25/2020 TECHNIQUE: IV Contrast: 75ml Isovue 370 Axial images obtained with sagittal and coronal reformats. All CT scans at the facility use one or more dose reduction, viz: automated exposure control, ma/kV adjustment per patient size (including targeted exams where dose is matched to indication, i.e. head), or iterative reconstruction technique. FINDINGS: Scattered small nodes are present in the lower neck and axilla. A BB is placed along the left supraclavicular region to denote an area of clinical concern. No mass or abnormal fluid collection is evident at this region. No significant inflammatory change. Cardiac pacemaker device is present from left subclavian approach. The No mediastinal or hilar mass or adenopathy. Coronary artery calcifications and/or stents noted. Minimal thickening noted in the major fissure and may be due to small lymph node. Calcified granuloma is present in the left upper lobe. Mild atelectatic or fibrotic changes are present in the lung bases. Mild wedge contour noted involving T4, T5, and T6 which may be chronic. There has been a prior cholecystectomy with mild biliary ectasia. Diverticulosis is present involving the hepatic flexure and ascending colon. IMPRESSION: 1. No acute finding. 2. Scattered small nodes in the neck and axilla. 3. No mass or other abnormality that would correspond to the placed BB along the anterior trapezius muscle on the left. Dictated by: Carlos Terrell MD 10/25/2020 15:15 Carlos Terrell MD in [facility] 10/25/2020 15:15
--- NOTE | 2020-10-25 12:38 | [facility].EDGENADL ---
ED Disposition Clinical Impression: Neck pain Disposition: Home, Self-Care Condition on Discharge: Good Instructions: DI for Laceration Repair Additional Instructions: Prednisone as prescribed. Tahoma as needed for pain. Heating pad intermittently. Follow-up with your primary care doctor within 4 to 5 days, call tomorrow to make appointment. Additional instructions for CONTROLLED SUBSTANCES: You have been prescribed a medication that is a controlled substance. Controlled substances include pain medications known as opiates and sedative nerve medications known as benzodiazepines. Tramadol, fioricet, and gabapentin are also controlled substances. Some common opiates include: Codeine (such as Tylenol #3) Hydrocodone (Vicodin, Lortab, Lorcet, Tahoma) Oxycodone (Percocet, Percodan, Oxycodone, Oxy IR) Some common benzodiazepines include: Diazepam (Valium) Lorazepam (Ativan) Alprazolam (Xanax) Clonazepam (Klonopin) Oxazepam (Serax) All of these controlled substances are highly addictive and frequently abused. Misuse can and frequently does lead to addiction as well as overdose and . Medication should be stored in a locked cabinet or other secure storage unit. Do not store the medication in a motor vehicle. Short term supplies, 3 days or less, are prescribed because of the highly addictive nature of the medication. Any of the controlled substance medication NOT taken should be disposed of properly and NOT SAVED. The recommended method of disposing of unused medications is: Place the medicines in a sealable plastic bag. If the medicine is a solid, crush it or add water to dissolve it. Add something undesirable (cat litter, coffee grounds, etc.) Dispose of sealed bag in household trash Do not flush or pour unused medicines down a sink or drain. Controlled substances should not be shared, given away or sold. Because of the addictive nature and frequent abuse, these medications are sometimes stolen. These medications should be kept in a safe place where they cannot be stolen. Do not keep them in your car or purse. Lost or stolen prescriptions for controlled substances WILL NOT BE REFILLED in this emergency department, regardless of whether a police report was filed. Prescriptions: Hydrocod/Acet 5/325 mg [Tahoma 5/325mg tablet] 1 tab PO Q6HP PRN #10 tab PRN Reason: Pain Transmission Status: Sent to [facility] predniSONE [Prednisone 20mg Tab] 20 mg PO BID #10 tab Transmission Status: [facility] Referrals: Kassi Guthrie APRN [Primary Care Provider] - - Critical Care Critical Care Time: No Attestation: On 10/25/20, the high probability of a clinically significant, sudden or life threatening deterioration of the following system(s) required my full and direct attention, intervention and personal management. The time I documented below is in addition to time spent performing reported procedures but includes the following listed in this critical care notation. Medical Decision Making - Ned Inquiry Pt receiving controlled substance: Yes Ned was queried for this patient: Yes Risks and benefits of using a controlled substance: were discussed with pt by me Vital Signs: 10/25/20 12:05 10/25/20 13:05 10/25/20 13:30 Temperature 97.8 F Temperature Source Oral Pulse Rate [Right] 94 H 70 87 Respiratory Rate 18 18 Blood Pressure [Right Arm] 105/67 L 144/83 H 144/63 H Blood Pressure Mean [Right Arm] 79 103 90 Blood Pressure Source [Right Arm] Automatic Cuff Blood Pressure Position [Right Arm] Sitting 02 Sat by Pulse Oximetry 99 96 98 Oxygen Delivery Method Room Air Room Air 10/25/20 15:54 Temperature Temperature Source Pulse Rate [Right] 71 Respiratory Rate Blood Pressure [Right Arm] 146/92 H Blood Pressure Mean [Right Arm] 110 Blood Pressure Source [Right Arm] Blood Pressure Position [Right Arm] 02 Sat by Pulse Oximetry 97 Ox
[2020-10-25 13:05] VITALS: BP 144/83; PULSE 70; O2SAT 96
[2020-10-25 13:29] LABS: Basophils # 0.1 K/mm3 (0-0.2); Basophils % 0.6 % (0.1-2.0); Eosinophils # 0.2 K/mm3 (0.0-0.4); Eosinophils % 1.1 % (0.1-12.0); Hemoglobin 15.7 g/dL (14.1-18.0); Lymphocytes # 6.3 K/mm3 (0.7-4.5); Lymphocytes % 42.4 % (10-50); Mean Corpuscular HGB Conc 32.1 g/dL (31.8-35.4); Mean Corpuscular Hemoglobin 28.2 pg (27.0-31.2); Mean Platelet Volume 7.4 fl (7.4-10.4); Monocytes # 0.9 K/mm3 (0.1-1.0); Monocytes % 6.2 % (1.7-9.3); Neutrophils # 7.4 K/mm3 (1.8-7.8); Neutrophils % 49.7 % (37.0-80.0); Platelet Count 311 K/mm3 (142-424); Red Blood Count 5.57 M/mm3 (4.60-6.20); Red Cell Distribution Width 14.1 % (11.5-17.5); White Blood Count 14.9 K/mm3 (4.8-10.8)
[2020-10-25 13:30] VITALS: BP 144/63; PULSE 87; RESP 18; O2SAT 98
[2020-10-25 13:34] LABS: Chloride 103 mmol/L (98-107); Potassium 4.7 mmoL/L (3.5-5.1); Sodium 139 mmol/L (136-145)
[2020-10-25 13:36] LABS: Blood Urea Nitrogen 11 mg/dl (9-20); Creatinine Clearance Estimated 70 mL/min (50-200); Estimated Glomerular Filt Rate 72 ml/min (>60); GFR (African American) 87 ML/MIN (>60); Lactic Acid 0.9 mmol/L (0.7-2.1)
[2020-10-25 13:37] LABS: Alanine Aminotransferase 18 U/L (12-78); Albumin/Globulin Ratio 1.3 (1.1-1.8); Alkaline Phosphatase 52 U/L (38-126); Anion Gap 17.7 mEq/L (5-15); Aspartate Amino Transferase 26 U/L (17-59); Bilirubin,Total 1.8 mg/dl (0.2-1.3); Calcium 10.1 mg/dl (8.4-10.2); Carbon Dioxide 23 mmol/L (22.0-30.0); Glucose 103 mg/dl (74-100)
[2020-10-25 13:42] LABS: C-Reactive Protein 0.7 mg/L (0-4)
[2020-10-25 13:56] LABS: Erythrocyte Sedimentation Rate 7 mm/hr (0-20)
[2020-10-25 15:54] VITALS: BP 146/92; PULSE 71; O2SAT 97
[2020-10-25 16:17] VITALS: BP 143/82; PULSE 76; RESP 20; TEMP 36.6; O2SAT 98
== END 2020-10-25 16:18 | disposition home or self-care (01) ==
PROVIDERS: Emergency Provider Emergency Medicine; PCP Nurse Practitioner
DX: M54.2 Cervicalgia (principal); I25.2 Old myocardial infarction; Z95.0 Presence of cardiac pacemaker; Z87.891 Personal history of nicotine dependence; Z88.5 Allergy status to narcotic agent; Z79.899 Other long term (current) drug therapy
CPT/HCPCS: 70491; 71260; 80053; 83605; 85025; 85651; 86140; 87040; 96374; 99283; Q9967